=== PATIENT | male | born 1975 | race Asian ===

== ENCOUNTER 2023-08-26 19:33 | Emergency (ER) | payer BC, SELFPAY ==
[2023-08-26 19:38] VITALS: BP 133/82
[2023-08-26 20:00] LABS: % Basophils 0.3 % (0-2); % Immature Granulocytes 0.3 % (0-0.5); % Lymphocytes 39.6 % (20.5-51.1); % Monocytes 7.7 % (1.7-9.3); % Neutrophils 49.1 % (42.2-75.2); Absolute Eosinophils 0.2 10^3/uL (0-0.7); Absolute Lymphocytes 2.7 10^3/uL (1.2-3.4); Absolute Monocytes 0.5 10^3/uL (0.1-0.6); Absolute Neutrophils 3.3 10^3/uL (1.4-6.5); Hematocrit 37.7 % (39.0-52.0); Hemoglobin 13.2 g/dL (13.0-18.0); Mean Corpuscular Hgb 28.6 pg (27.0-31.0); Mean Corpuscular Volume 81.6 fL (80.0-94.0); Mean Platelet Volume 11.2 fL (7.4-10.4); Nucleated Red Blood Cells % 0 % (-); Platelet Count 260 10^3/uL (130-400); Red Blood Cell Count 4.62 10^6/uL (4.70-6.10); Red Cell Dist. Width 13.3 % (11.5-14.5); White Blood Cell Count 6.8 10^3/uL (4.8-10.8)
[2023-08-26 20:23] LABS: ALT (SGPT) 29 U/L (0-50); AST (SGOT) 30 U/L (17-59); Albumin 4.8 g/dl (3.5-5.0); Alkaline Phosphatase 62 U/L (38-126); Blood Urea Nitrogen 15 mg/dl (9-20); Calcium 9.6 mg/dl (8.4-10.2); Carbon Dioxide 25 mmol/L (22-30); Chloride 106 mmol/L (98-107); Glucose 117 mg/dl (70-99); Potassium 4.2 mmol/L (3.5-5.1); Sodium 139 mmol/L (135-145); Total Bilirubin 0.3 mg/dl (0.2-1.3); Total Protein 7.2 g/dl (6.3-8.2); eGFR > 60.00
[2023-08-26 20:27] LABS: Troponin I < 0.012 ng/ml
--- NOTE | 2023-08-27 00:09 | ED.GENMED ---
History of Present Illness
General
Chief Complaint: Headache
Source: patient
Exam Limitations: none
Time Seen by Provider: 08/26/23 23:53
Nursing documentation reviewed up to this point in time: agreed with
Travel History
Have you had any contact with someone who has COVID-19?: No
Do you have any symptoms of coronavirus? Fever > 100 degrees, chills, cough, shortness of breath, sore throat, loss of taste or smell, muscle aches, or headache?: No
History of Present Illness
History of Present Illness:
pt is a 48 y/o M with h/o HLD
here with headache x 3 days mild to mod, gradual onset, no sudden worst headache of lift but he started to have some lightheadedness and pain in both hands so he decided to come get checked out after trying to call his PCP and not getting appt until
october.
pt says he does occ get heaaches but this felt a little different
he has not had any ringing in ears, vision changes, nausea, vomiting, phonophobia, weakness numbness
he felt a littl epani into his hest he told triage but not me. he denied chest pain for me
pt took tylenol earlier today awith some relief of headache from 8/10 to 5/10 currently
nothing makes his headache worse, it s not worse with position
pt did recently have annual check up and wa told he shuld see an eye doctor because maybe he needs glasses
no truama to neck, no chiropractor visit
Past History
Past History
ED Past Medical History: Hypercholesterolemia
Social History
Tobacco: Non-smoker
Alcohol: None
Drug: None
Personal:
Employment: Employed
Review of Systems
Review of Systems
Allergies reviewed?: Yes
All Other Systems: Not applicable
Phy Exam
Physical Exam
Physical Exam:
GENERAL: Alert , in no apparent distress
HEAD: NCAT
EYE: pupils equal and reactive, no nystagmus, no photophobia
NECK: Supple,full rom, nontender
ENT: o/p clr, mmm.
CARDIAC: Regular rate and rhythm . no edema
LUNGS: Clear breath sounds bilaterally, no acute respiratory distress, no wheezes/rales/rhonchi
ABDOMEN: Soft, without focal tenderness, no r/g, no cvat
NEUROLOGICAL: Alert and orientedx 4, cn intact, no facial asymmetry, 5/5 strength in UE/LE, sensation intact, romberg neg, ambulates without assistance, neg pronator drift
SKIN: Warm and dry, skin intact.
MUSCULOSKELETAL: No edema, well perfused.
PSYCH: Normal and appropriate interaction.
Course
Orders/Labs/Results
Orders:
Orders
08/26/23 19:43
Electrocardiogram (*1) Urgent
Reason for Study: Chest Pain
08/26/23 19:44
EKG- Treatment ONCE
08/26/23 19:55
CMP [Comprehensive Metabolic Panel] Urgent
Complete Blood Count/With Diff Urgent
Troponin I Urgent
08/27/23 00:20
CT Head W/o Iv Contrast Urgent
Comment:
Reason For Exam: headache x 3 days
Ibuprofen [Motrin] 600 mg PO NOW STA
Abnormal Lab Results
08/26/23
19:55
RBC 4.62 L 10^6/uL
(4.70-6.10)
Hct 37.7 L %
(39.0-52.0)
MPV 11.2 H fL
(7.4-10.4)
Glucose 117 H mg/dl
(70-99)
08/26/23 19:55
08/26/23 19:55
Vital Signs
Initial and Last Documented VS:
Initial Vital Signs
Temp Pulse Resp BP Pulse Ox
98 F 74 18 133/82 100
08/26/23 19:38 08/26/23 19:38 08/26/23 19:38 08/26/23 19:38 08/26/23 19:38
Last Documented Vital Signs
Temp Pulse Resp BP Pulse Ox
98 F 68 16 122/74 99
08/26/23 19:38 08/27/23 01:30 08/27/23 01:30 08/27/23 01:30 08/27/23 01:30
MDM/Problems Addressed
Differential Diagnosis Includes:
tension headache, mgraine,
MDM/Problems Addressed:
48 y/o M hld
here with headache, neck and temporal regio x 3 days
no red flag symptoms
gradudal onet
fluctuating intensity, not worse with position changes
initially told triage no dizziness, here tells me mild lighhteadedness
pain better now than earlier
5/10 pain currently, no other symptoms but had ome hand pain in both hands
did not tell me chest pain as he told deborah
on exam well appearing
moving head/nek normally
neuro intact
heart/lungs normal
bp normal
labs an ekg reassuring
pt ays his mom had what sounds to be SDH or epidural previously
no aneurysm history
noncon head ct neg
unlikely to be dissection and SAH
d/w dr. lock who agrees
d/c hoem.
*Critical Care Note
Total Time (30-74mins, 75-104mins- exclusive of procedures): Not Applicable
ED Attending Note
-
Portions of this chart may have been created with voice recognition software.� Occasional wrong word or��sound alike� substitutions may have occurred due to the inherent limitations of voice recognition software.
Discharge Plan
Departure
Patient Disposition: Home (Routine Discharge)
Date of Disposition: 08/27/23
Time of Disposition: 01:30
Patient with high blood pressure during this ER visit?: No
Condition: Fair
Covid-19: Not Applicable
Discharge Problem:
Headache
Instructions: Headache, Adult (DC)
Referrals:
Guillermo Sanchez MD [Family Provider] - Follow up in 2-3 days
Activity Restrictions/Additional Instructions:
YOUR WORK UP HERE DOES NOT SEEM CONCERNING FOR AN EMERGENCY CAUSE OF HEADACHE
WATCH YOUR SYMPTOMS CLOSELY
TAKE TYLENOL EVERY 6 HOURS, YOU CAN ALSO USE MOTRIN EVERY 8 HOURS FOR HEADACHE
DRINK FLUIDS
GET YOUR EYES CHECKED
RETURN FOR: SEVERE SUDDEN WORST HEADACHE OF LIFE, VOMITING, VISION CHANGES, WORSE DIZZINESS, OR ANY CONCERNS.
Interventions
Interventions:
*Risk Screen - Suicide Last Done: 08/26/23 19:38
*General Assessment Last Done: 08/26/23 19:38
*Neglect/Abuse Screening Last Done: 08/26/23 19:38
ED- Fall Risk Assessment Last Done: 08/26/23 23:17
*ED COVID-19 Vaccine History Last Done: 08/26/23 23:17
*Nursing Disposition Last Done: 08/27/23 01:41
ED- Neurological Assessment Last Done: 08/26/23 23:17
Discharge Date and Time
Discharge Date/Time: 08/27/23 01:41
Print Language: [email or web address]
[2023-08-27] MEDS: MOTRIN 600 MG PO (00:31)
[2023-08-27 01:30] VITALS: BP 122/74
== END 2023-08-27 01:41 | disposition home or self-care (01) ==
LOC: EMR 19:33
PROVIDERS: Physician Assistant; EMERGENCY PHYSICIAN Emergency Medicine; FAMILY PHYSICIAN Family Medicine
DX: R51.9 Headache, unspecified (principal); R42 Dizziness and giddiness
CPT/HCPCS: 99285; 70450; 80053; 84484; 85025; 93005

== ENCOUNTER 2025-03-12 20:47 | Emergency (ER) | payer BC, SELFPAY ==
[2025-03-12 20:54] VITALS: BP 150/94
[2025-03-12 21:11] LABS: Hematocrit 40.5 % (39.0-52.0); Hemoglobin 13.5 g/dL (13.0-18.0); Mean Corp Hgb Conc. 33.3 g/dL (33.0-37.0); Mean Corpuscular Volume 84.6 fL (80.0-94.0); Nucleated Red Blood Cells % 0 % (-); Platelet Count 218 10^3/uL (130-400); Red Cell Dist. Width 13.0 % (11.5-14.5)
[2025-03-12 21:31] LABS: ALT (SGPT) 31 U/L (0-50); AST (SGOT) 29 U/L (17-59); Albumin 5.1 g/dl (3.5-5.0); Alkaline Phosphatase 42 U/L (38-126); Blood Urea Nitrogen 13 mg/dl (9-20); Calcium 9.7 mg/dl (8.4-10.2); Carbon Dioxide 29 mmol/L (22-30); Chloride 101 mmol/L (98-107); Glucose 135 mg/dl (70-99); Potassium 4.8 mmol/L (3.5-5.1); Sodium 139 mmol/L (135-145); Total Protein 7.6 g/dl (6.3-8.2); eGFR > 60.00
[2025-03-12 21:43] LABS: Troponin I 0.014 ng/ml
[2025-03-13 01:52] VITALS: BP 143/83
[2025-03-13 02:07] VITALS: BP 108/73
[2025-03-13 02:10] VITALS: BP 109/78; BMI 27.5
[2025-03-13 02:12] VITALS: BP 109/78
[2025-03-13 02:18] VITALS: BP 117/79
[2025-03-13 02:38] LABS: INR 0.95; PT 12.9 Sec (11.4-14.6)
[2025-03-13 02:39] LABS: APTT 29.7 Sec (23.4-35.0)
--- NOTE | 2025-03-13 02:57 | ED.GENMED ---
History of Present Illness
General
Chief Complaint: Chest Pain
Source: patient
Exam Limitations: none
Time Seen by Provider: 03/13/25 02:27
Nursing documentation reviewed up to this point in time: agreed with
History of Present Illness
History of Present Illness:
49-year-old male with a history of hyperlipidemia presents to the ER for evaluation of hypertension, dizziness and chest discomfort. Patient reports that he was sitting on his computer this evening when he started to notice some mild dizziness
which she describes as a lightheaded sensation. He says that because of these symptoms he decided to check his blood pressure with a home cuff and it was severely elevated to well over 200 systolic. He says he drinks water and took some time to
relax and rechecked it again and it had improved but was still quite high at 180 systolic. He says he started to notice some mild pressure in his chest and ultimately came to the ER to be assessed. He says symptoms have improved since ER arrival.
He denies any associated nausea, vomiting, diaphoresis. He has not had any shortness of breath. He denies palpitations. He says he has never had similar symptoms before. He denies any known heart problems. He says he has no history of
hypertension. Denies any recent increase in salt, environmental stress, or any other clear triggers for hypertension.
Past History
Past History
ED Past Medical History: Hypercholesterolemia
Social History
Tobacco: Non-smoker
Alcohol: None
Drug: None
Personal:
Employment: Employed
Review of Systems
Review of Systems
All Other Systems: ROS reviewed and negative except as documented in HPI and ROS
Constitutional: Denies fever
Respiratory: Denies trouble breathing
Cardiac: Reports chest pain; Denies palpitations or syncope
ABD/GI: Denies abdominal pain, nausea or vomiting
: Denies flank pain
Musculoskeletal: Denies neck pain or back pain
Neurological: Reports dizzy; Denies headache
Phy Exam
Physical Exam
Physical Exam:
General: Awake, alert, oriented x3; no acute distress
Head: Normocephalic, atraumatic
Eyes: Conjunctiva normal, sclera anicteric
Throat: Airway intact, handling secretions
Neck: Trachea midline, supple without meningismus
Lungs: Clear to auscultation bilaterally, no wheezing, rales, rhonchi
Heart: Regular rate and rhythm, no murmurs, gallops, or rubs
Abd: Soft, non distended, nontender
Neuro: Grossly intact
Skin: no rash
Extremities: No edema in extremities, equal pulses in all extremities
Scores
Heart Failure Risk
Heart Failure Risk Score: Not Applicable
Heart Score for Chest Pain Patients
STEMI patient?: No
History: Slightly or Non-Suspicious
ECG: Normal
Age: >45 - <65 years
Risk Factors: 1 or 2 Risk Factors
Troponin: </= Normal Limit
Heart Score for Chest Pain Patients: 2
Heart Score Risk: 2.5% MACE over next 6 weeks
Withdrawal Assessment of Alcohol
Withdrawal Assessment Completed?: Not applicable
Course
Orders/Labs/Results
Orders:
Orders
03/12/25 20:50
EKG [Electrocardiogram (*1)] Urgent
Reason for Study: Chest Pain
EKG- Treatment ONCE
03/12/25 21:00
Complete Blood Count/With Diff Urgent
Comprehensive Metabolic Panel Urgent
Troponin I Urgent
03/13/25 01:56
ECG [Electrocardiogram (*1)] Urgent
Reason for Study: Chest Pain
Cardiology Consult: Unknown
EKG- Treatment ONCE
03/13/25 02:08
CR Chest - 2 Views Urgent
Comment:
Reason For Exam: chest pain
03/13/25 02:19
PTT Urgent
Prothrombin Time Urgent
Troponin I Urgent
Abnormal Lab Results
03/12/25
21:00
MPV 11.4 H fL
(7.4-10.4)
Absolute Monos (auto) 0.7 H 10^3/uL
(0.1-0.6)
Glucose 135 H mg/dl
(70-99)
Albumin 5.1 H g/dl
(3.5-5.0)
03/12/25 21:00
03/12/25 21:00
Vital Signs
Initial and Last Documented VS:
Initial Vital Signs
Temp Pulse Resp BP Pulse Ox
36.6 C 84 18 150/94 100
03/12/25 20:54 03/12/25 20:54 03/12/25 20:54 03/12/25 20:54 03/12/25 20:54
Last Documented Vital Signs
Temp Pulse Resp BP Pulse Ox
36.5 C 60 16 117/79 100
03/13/25 02:12 03/13/25 02:33 03/13/25 02:33 03/13/25 02:18 03/13/25 03:02
MDM/Problems Addressed
Differential Diagnosis Includes:
Dizziness/chest pain: GERD, dysrhythmia, ACS, anxiety; very low clinical suspicion for aortic dissection or PE in my judgment no further workup for these diagnoses indicated
MDM/Problems Addressed:
49-year-old male presents to the ER for evaluation of dizziness and chest discomfort and elevated blood pressure at home. He was hypertensive in triage to 150/94 but blood pressure normalized by my assessment. Rest of vitals within acceptable
range. His EKG shows sinus rhythm with no STEMI. He had labs in triage including a CBC and a CMP which showed no clinically significant abnormalities. His initial troponin is negative. His chest x-ray reviewed by me shows no acute disease. Plan
to repeat troponin. Will monitor on telemetry. Reassess after the above.
Repeat troponin negative. Patient remains well-appearing with stable vitals, normal blood pressure. Stable for discharge to follow-up with PCP regarding elevated blood pressure. Will also provide referral via chest pain hotline after episode of
chest pain this evening. Patient comfortable with this plan. All questions answered.
Chronic conditions affecting care:
Hyperlipidemia
Acute Exacerbation and/or Progression of Chronic Illness:
Acutely hypertensive resolved on intervention continue to monitor but no additional antihypertensives indicated at this point
Acute Exacerbation and/or Progression of Chronic Illness: HTN
*Radiology
Radiology exam reviewed: preliminary read by ED provider
*Pulse Oximetry
SaO2: 100
Oxygen Mode of Delivery: Room air
Patient hypoxic: no (100%)
*EKG
Interpreted by ED Provider?: Yes
Heart Rate: 85
Rate: normal
Rhythm: sinus
[place]: normal axis
Interval: normal interval
QRS Pattern: normal QRS
Ischemia: no ischemia
*Critical Care Note
Total Time (30-74mins, 75-104mins- exclusive of procedures): Not Applicable
Data Reviewed
Source: patient and records
ED Attending Note
-
Portions of this chart may have been created with voice recognition software.� Occasional wrong word or��sound alike� substitutions may have occurred due to the inherent limitations of voice recognition software.
Discharge Plan
Departure
Patient Disposition: Home (Routine Discharge)
Date of Disposition: 03/13/25
Time of Disposition: 03:10
Patient with high blood pressure during this ER visit?: Yes
Discharge Problem:
Chest pain, Hypertension
Instructions: Chest Pain CBC Follow Up
Referrals:
Don Schulte MD [Active, Cardiology] - Call in 1-3 days for appt
Activity Restrictions/Additional Instructions:
You should keep track of your blood pressure over the next week and follow-up with your primary doctor next week to review the readings and discuss whether you need to be on medication for your blood pressure. You should follow-up with a
steam[employer] attendant [employer] after your ER visit to have further assessment after episode of chest pain. If you have any recurrence of chest pain or if you develop any other symptoms that are concerning you should return to the ER for reassessment.
Thank you for visiting the Emergency Department at [facility].
1. Please schedule a follow up appointment as directed. Call first thing tomorrow morning to make an appointment.
2. If indicated, please take your medications as instructed and indicated on discharge paperwork.
3. If any of your symptoms do not improve, or persist, or become more severe within 6-12 hours, please return to the emergency department for further care.
4. Please return to the emergency department if you develop a headache, neck pain/stiffness, fever greater than 100.4F, chest pain, shortness of breath, persistent nausea, vomiting, slurred speech, difficulty walking, numbness/tingling, weakness,
signs of infection or any other symptoms that are worrisome to you.
Please call [phone] if you have any questions.
Interventions
Interventions:
*Risk Screen - Suicide Last Done: 03/12/25 20:55
*General Assessment Last Done: 03/12/25 20:55
*Neglect/Abuse Screening Last Done: 03/12/25 20:55
*ED- Fall Risk Assessment Last Done: 03/13/25 02:13
*ED COVID-19 Vaccine History Last Done: 03/12/25 20:55
*ED Influenza Vaccine History Last Done: 03/12/25 20:55
ED- Cardiac Assessment Last Done: 03/13/25 02:21
Discharge Date and Time
Print Language: TURKISH
[2025-03-13 03:01] LABS: Troponin I < 0.012 ng/ml
== END 2025-03-13 04:01 | disposition home or self-care (01) ==
LOC: EMR 20:47
PROVIDERS: Emergency Medicine; EMERGENCY PHYSICIAN Emergency Medicine
DX: R07.9 Chest pain, unspecified (principal); I10 Essential (primary) hypertension; E78.00 Pure hypercholesterolemia, unspecified
CPT/HCPCS: 99284; 71046; 80053; 84484; 85025; 85610; 85730; 93005